=== PATIENT | male | born 1950 | race African-American/Black ===

== ENCOUNTER → 2021-06-11 09:59 | Outpatient (CLI) | payer MEDICARE, SELFPAY | PROVIDERS: PCP Family Medicine; Referring Provider Orthopaedic Surgery; Visit Provider Orthopaedic Surgery | DX: Z01.811 Encounter for preprocedural respiratory examination (principal) ==

== ENCOUNTER → 2021-06-11 10:26 | Outpatient (CLI) | payer MEDICARE, SELFPAY ==
--- NOTE | 2021-06-11 10:35 | RAD_ITS ---
EXAM DESCRIPTION: PA and lateral chest CLINICAL HISTORY: 71 years Male, PRE OP PRE OP COMPARISON: None FINDINGS: The thorax is intact. The heart and mediastinum appear to be within normal limits. The lungs appear to be well areated without evidence of pneumonic consolidation or pleural effusion. RAD/Chest PA and Lateral IMPRESSION: Normal PA and lateral chest Electronically Signed: Yogesh Evans DO at 13:37 EDT Tel , Service support ,
--- NOTE | 2021-06-11 10:37 | EKG12_ITS ---
Test Reason : PRE OP Blood Pressure : / mmHG Vent. Rate : 079 BPM Atrial Rate : 079 BPM P-R Int : 166 ms QRS Dur : 058 ms QT Int : 348 ms P-R-T Axes : 055 069 047 degrees QTc Int : 399 ms Normal sinus rhythm Septal infarct , age undetermined Abnormal ECG Confirmed by DAX DIETRICH, ROYER ([id number]), offline editor CANDY DUBOIS ([id number]) on 06/14/2021 1:33:52 PM Referred By: Israel Castillo Confirmed By:ROYER VERDUZCO MD
== END ==
PROVIDERS: PCP Family Medicine; Referring Provider Orthopaedic Surgery; Visit Provider Orthopaedic Surgery
DX: Z01.811 Encounter for preprocedural respiratory examination (principal)
CPT/HCPCS: 71046; 93005

== ENCOUNTER 2022-04-12 12:30 | Outpatient (RCR) | payer MEDICARE, SELFPAY ==
--- NOTE | 2022-02-28 12:10 | HP.PTEVAL_ITS ---
Patient's Visit Information GINO ULLOA Jr. is a 71 year old M referred to Physical Therapy by Dr. Justin Kincaid MD with a diagnosis of RIGHT TKR. Date of Evaluation: 02/28/22 Physical Therapist: David Shetes PT, Cert MDT, OCS - Visit Plan Frequency: 2x /Week Duration: 4 Weeks Plan: PT INTERVETIONS ROM/STRETCHING,STRENGTH QIADS/HAMS,FLEXABLITY ,NUSTEP/BILE AND FUNCTIONAL STRENGTHNEING - Subjective This 71 y/o male presents to physical therapy with RIGHT TKR . Patient underwent TKR s/p by DR Castillo at [facility] on 01/21/22 d/c to home 01/22/22 with fww . Patient had [facility] PT ~ 4weeks eventually weaned to no device. Patient has h/o left TKR. Patient has had knee pain many years. Patient lives 2 story home with 3 steps with rails. Stays on 1st floor bed/bath. Walking in shower with seat. Denies paresthesia/tingling. Patient doing steps one step at time. Patient TKR impairs function and ADL'S. Patient condition affects QOL. MEDS stopped Percocet. SOCIAL: . VOCATION: retired - Pain Right Knee Pain Intensity (Out of 10): 3 Pain Intensity Range: 10 - Objective POSTURE: mild forward posture. GAIT: reciprocal pattern mild swing phase mild stance. NEURO: denies paresthesia/tingling. INSCION: well approximate. GIRTH PATELLA: 40.4 cm. GIRTH 6 SUPRAPATTELLA 50.6. AROM: 0-100 supine knee AROM. MMT: (peak force) quads 43.4,hamstrings 32.2. STAIRS: one step at time - Balance/Special Test Scores Lower Extremity Functional Score: 30 TUG Test Time Seconds: 10.2 WOMAC Total Score: 65 WOMAC Percentatge: 29.3500 - Goals Goal 1:: I with HEP for TKR Goal Time Frame: 4-6 Weeks Goal 2:: Patient to normalize gait pattern Goal Time Frame: 4-6 Weeks Goal 3:: Patient to increase peak force by 5-10 for hamstrings and quads to improve function with gait Goal Time Frame: 4-6 Weeks Goal 4:: Patient to improve AROM knee flexion 110-115 degrees to improve stairs . Goal Time Frame: 4-6 Weeks Goal 5:: Patient improve WOMAC score by 10 points to improve QPL Goal Time Frame: 4-6 Weeks Goal 6:: Patient to improve LFES score by 10 points to improve QOL Goal Time Frame: 4-6 Weeks - Rehabilitation Potential Physical Therapy Diagnosis: This patient underwent s/p right TKR with decrease ROM ,strength ,stairs which impairs function with walking and function thus will benefit from skilled PT Rehabilitation Potential: Good - Anticipated Interventions Thank you for the opportunity to evaluate your patient. For Medicare and Medicare HMO plans, please review the plan of care and approve it. It will need to be FAXED BACK to us at [phone] for Medicare purposes. For Medicare only, by signing this I certify the plan of care. Please let me know if there are questions or concerns regarding this plan of care. Physician Signature: Date:
--- NOTE | 2022-04-12 12:56 | HP.PTDCSUM ---
It has been my pleasure to treat GINO ULLOA Jr. referred by Dr. Justin Kincaid MD, with the diagnosis of RIGHT TKR - 01/21/22 for a total of 9 visit(s). Discharge Date: 04/12/22 Please see the following information for a summary of their discharge status. Subjective: Doing good. Right Knee Pain Intensity (Out of 10): 2 % Improvement: 80 Objective/Function: POSTURE: mild forward. GAIT: reciprocal pattern. STAIRS: ascend/descend alternating with rails. AROM: 0-120 supine knee flexion. MMT: quads 47.8.hamstrings 46.8. Goal 1:: I with HEP for TKR Goal Progress: Goal Met Goal 2:: Patient to normalize gait pattern Goal Progress: Goal Met Goal 3:: Patient to increase peak force by 5-10 for hamstrings and quads to improve function with gait Goal Progress: Goal Met Goal 4:: Patient to improve AROM knee flexion 110-115 degrees to improve stairs . Goal Progress: Goal Met Goal 5:: Patient improve WOMAC score by 10 points to improve QPL Goal Progress: Goal Met Goal 6:: Patient to improve LFES score by 10 points to improve QOL Goal Progress: Goal Met Plan: D/C Discharge Comments: hep If there are questions or concerns regarding this patient's physical therapy, please feel free to call me at [phone]. Thank you for the referral of this patient. Sincerely, David Sheets, PT, Cert MDT, OCS Balance/Gait/Functional tests - Balance/Special Test Scores Lower Extremity Functional Score: 67 TUG Test Time Seconds: 5.5 Tug Test: <10 sec.=free mobile WOMAC Total Score: 10 WOMAC Percentage: 89.5900
== END 2022-04-12 19:00 | disposition home or self-care (01) ==
LOC: PT 12:30
PROVIDERS: PCP Family Medicine; Referring Provider Family Medicine; Visit Provider Family Medicine
DX: Z96.651 Presence of right artificial knee joint (principal)
CPT/HCPCS: 97110; 97162

== ENCOUNTER → 2025-08-18 | Outpatient (CLI) | payer MEDICARE, SELFPAY ==
--- NOTE | 2025-08-18 | LES_PTH ---
PATIENT: GINO ULLOA Jr. LOC: [facility] U#:[id number] AGE/SX: 75/M ROOM: RE08/18/[address]: Dr. Fitz Barber MD : [id number] BED: DIS: 08/18/2025 SPEC #: [id number] RECD: 08/18/25 15:06 STATUS: ROB MICHAEL #: [id number] ALESSIO: 08/18/25 00:[address]: Fitz Barber DEPT: SURGICAL PATHOLOGY RECD BY: Joe Rico ENTERED: 08/19/25 08:30 SP TYPE: Lesion OTHR DR: Dr. Justin Kincaid MD Tissues: A - Skin of face, NOS Procedures: Surgery Specimen Level IV HEADER OPERATION: Excision right cheek lesion PRE-OP DIAGNOSIS: Right cheek lesion TISSUE SUBMITTED: A- Right cheek lesion MICROSCOPIC DIAGNOSIS A. Skin, cheek, right, excision: * Epidermal inclusion cysts MICROSCOPIC DESCRIPTION Slides are reviewed. GROSS DESCRIPTION A. Received in formalin labeled with the patient's name and date of . Designated as right cheek lesion is a 2.1 x 0.9 cm gaming skin ellipse, devoid of orientation and excised to a maximum depth of 0.3 cm. The resection margin is inked black. Eccentrically, the epidermal is raised with a palpable, underlying lesion measuring 0.9 x 0.9 cm and abutting the peripheral edge. Sectioning reveals multiple cyst containing gaming-white, iridescent sebaceous like material, ranging 0.3 cm to 0.9 cm. Entirely submitted in 2 cassettes. ND 08/18/2025 CPT:41610
== END | disposition home or self-care (01) ==
PROVIDERS: PCP Family Medicine; Referring Provider Surgery Plastic and Reconstructive Surgery; Visit Provider Surgery Plastic and Reconstructive Surgery
DX: L72.0 Epidermal cyst (principal)
CPT/HCPCS: 88305

== ENCOUNTER → 2025-09-08 | Outpatient (CLI) | payer MEDICARE, SELFPAY ==
--- NOTE | 2025-09-08 09:17 | RAD_ITS ---
PROCEDURE: RAD/L/S Spine Comp/w Bending Views
== END | disposition home or self-care (01) ==
LOC: RAD 09:15
PROVIDERS: PCP Family Medicine; Referring Provider Clinical Nurse Specialist Adult Health; Visit Provider Clinical Nurse Specialist Adult Health
DX: M54.50 Low back pain, unspecified (principal)
CPT/HCPCS: 72114